=== PATIENT | male | born 1945 | race Caucasian/White ===

== ENCOUNTER 2022-01-20 15:37 | Emergency (ER) | payer MEDICARE ==
[~2022-01-20] VITALS: Ht 172.7 cm; Wt 87.1 kg
--- NOTE | 2022-01-20 15:37 | NUR ---
PT [id number] FRM HOME, C/O CHEST PAIN ONSET 1430. 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 PT IS AAOX4, NOT IN RESPIRATORY DISTRESS, HOOKED TO ANALYST, KEPT RESTED AND COMFORTABLE. WILL CONTINUE TO MONITOR.
--- NOTE | 2022-01-20 16:05 | NUR ---
PT SEEN AND EXAMINED BY .
--- NOTE | 2022-01-20 16:10 | NUR ---
IV LINE ESTABLISHED BLOOD DRAWN AND SENT TO LAB.
[2022-01-20 16:31] LABS: BASOPHILS % (AUTO) 0.5 % (0.0-2.0); HEMATOCRIT 38 % (39-51); HEMOGLOBIN 13.1 g/dL (13.5-17.5); LYMPHOCYTES # (AUTO) 1.2 K/uL (0.8-4.8); LYMPHOCYTES % (AUTO) 14.5 % (20.0-44.0); MEAN CORPUSCULAR HGB CONC 35 g/dl (31.0-36.0); MEAN CORPUSCULAR VOLUME 92 fL (80-96); MONOCYTES # (AUTO) 0.7 K/uL (0.1-1.30); MONOCYTES % (AUTO) 8.9 % (2.0-12.0); NEUTROPHILS # (AUTO) 6.1 K/uL (1.8-8.9); NEUTROPHILS % (AUTO) 75.1 % (43.0-81.0); PLATELET COUNT (AUTO) 239 K/uL (150-450); WHITE BLOOD COUNT (AUTO) 8.2 K/uL (4.3-11.0)
[2022-01-20 16:46] LABS: CALCIUM, SERUM 8.4 mg/dL (8.5-10.1); CARBON DIOXIDE 27 mmol/L (21-32); CHLORIDE 103 mmol/L (98-107); CREATININE 1.2 mg/dL (0.6-1.3); GLUCOSE 138 mg/dL (74-106); POTASSIUM 3.7 mmol/L (3.5-5.1); SODIUM SERUM 137 mmol/L (136-145); UREA NITROGEN, BLOOD 19 mg/dL (7-18)
[2022-01-20] MEDS ORDERED: ALPRAZOLAM 0.5 MG TABLET ONE (17:33)
[2022-01-20] MEDS ORDERED: ALPRAZOLAM 0.5 MG TABLET PO ONE (18:00)
--- NOTE | 2022-01-20 20:16 | NUR ---
Patient discharged to home in stable condition. Written and verbal after care instructions given. Patient verbalizes understanding of instruction. Patient ambulatory with a steady gait.
[2022-01-20 20:17] VITALS: BP 170/92
== END 2022-01-20 20:15 | disposition home or self-care (01) ==
LOC: ER 15:40
DX: R07.89 Other chest pain (principal); I10 Essential (primary) hypertension
CPT/HCPCS: 36415; 71045-TC; 80048-TC; 84484-TC; 85025-TC

== ENCOUNTER 2022-01-23 16:11 | Emergency (ER) | payer MEDICARE ==
[~2022-01-23] VITALS: Ht 172.7 cm; Wt 82.1 kg
--- NOTE | 2022-01-23 16:29 | NUR ---
CALLED PT IN WAITING ROOM, NO ANSWER
[2022-01-23 16:34] VITALS: BP 199/106
[2022-01-23] MEDS ORDERED: LORA-259 PO (17:12)
== END 2022-01-23 19:30 | disposition left against medical advice (07) ==
LOC: ER 16:15
DX: F41.1 Generalized anxiety disorder (principal); I10 Essential (primary) hypertension; Z60.2 Problems related to living alone; Z79.52 Long term (current) use of systemic steroids

== ENCOUNTER 2023-04-10 12:04 | Emergency (ER) | payer MEDICARE ==
[~2023-04-10] VITALS: Ht 172.7 cm; Wt 79.4 kg
[~2023-04-10 12:04] MED LIST: LORA-259 PO
[2023-04-10] MEDS ORDERED: IV NS 0.9% 1,000 ML BAG IV ONE (12:30)
--- NOTE | 2023-04-10 12:30 | NUR ---
BIB FAMILY C/P RLQ ABDOMINAL VINCENT N X1 MONTH THAT RADIATES TO HIS BACK, PAIN IS 8/10. NO DYSURIA, VOMITING NOR NAUSEA. PAIN WAS NOTED SEVERE 1 DAY PTC. PUT ON MONITOR. DR CRAIG AT BEDSIDE FOR EVAL. AWAITING FO ORDERS.
--- NOTE | 2023-04-10 12:36 | NUR ---
IV INSERTED RT FOREARM 20G, BLD DRAWN AND SENT TO LAB. STILL WAITING FOR URINE.
[2023-04-10] MEDS ORDERED: IOHEXOL-350 100 ML VIAL IV ONE (12:45)
[2023-04-10] MEDS ORDERED: CT SWABBABLE VALVE TRANS SET 1 EA INFUS.SET MC ONE (12:45)
[2023-04-10] MEDS ORDERED: IV NS 0.9% 250 ML IV ONE (12:45)
--- NOTE | 2023-04-10 12:45 | NUR ---
PER DR CRAIG NO NEED TO WAIT FOR CREATININE LEVEL TO DO CTA. PRIMARY NURSE MADE AWARE.
--- NOTE | 2023-04-10 12:48 | NUR ---
IVF RUNNING AT RT FOREARM 20G
[2023-04-10 12:59] LABS: BASOPHILS % (AUTO) 0.2 % (0.0-2.0); EOSINOPHILS % (AUTO) 1.5 % (0.0-6.0); HEMATOCRIT 44 % (39-51); HEMOGLOBIN 14.6 g/dL (13.5-17.5); LYMPHOCYTES # (AUTO) 1.2 K/uL (0.8-4.8); LYMPHOCYTES % (AUTO) 16.8 % (20.0-44.0); MEAN CORPUSCULAR HGB CONC 34 g/dl (31.0-36.0); MEAN CORPUSCULAR VOLUME 95 fL (80-96); MONOCYTES # (AUTO) 0.8 K/uL (0.1-1.30); MONOCYTES % (AUTO) 11.5 % (2.0-12.0); NEUTROPHILS # (AUTO) 4.9 K/uL (1.8-8.9); PLATELET COUNT (AUTO) 240 K/uL (150-450); WHITE BLOOD COUNT (AUTO) 7.1 K/uL (4.3-11.0)
--- NOTE | 2023-04-10 13:03 | NUR ---
PT WITH EXPERIMENTAL PHYSICIST FOR SCAN VIA [facility]
--- NOTE | 2023-04-10 13:19 | NUR ---
BACK FROM CT VIA [facility]. VS WNL
--- NOTE | 2023-04-10 13:34 | NUR ---
DR CRAIG NOTIFIED OF BP 227/99
[2023-04-10 13:48] LABS: CALCIUM, SERUM 9.7 mg/dL (8.5-10.1); CREATININE 0.9 mg/dL (0.6-1.3); POTASSIUM 4.5 mmol/L (3.5-5.1)
[2023-04-10 13:50] LABS: ALBUMIN 4.4 g/dL (3.4-5.0); BILIRUBIN,DIRECT 0.2 mg/dL (0.0-0.2); BILIRUBIN,TOTAL 0.9 mg/dL (0.2-1.0); TOTAL PROTEIN, SERUM 8.3 g/dL (6.4-8.2)
[2023-04-10 14:06] LABS: BILIRUBIN,URINE NEGATIVE (NEGATIVE); COLOR,URINE YELLOW (YELLOW); LEUKOCYTE ESTERASE ,URINE NEGATIVE (NEGATIVE); NITRITE, URINE NEGATIVE (NEGATIVE); PROTEIN,URINE NEGATIVE (NEGATIVE); UGLUCOSE NEGATIVE (NEGATIVE); UROBILINOGEN,URINE 0.2 EU/dL (0.2)
--- NOTE | 2023-04-10 14:38 | NUR ---
IVF REMOVED WELL TOLERATED
[2023-04-10 15:28] VITALS: BP 170/95
--- NOTE | 2023-04-10 15:29 | NUR ---
Patient discharged to home in stable condition. Written and verbal after care instructions given. Patient verbalizes understanding of instruction.
--- NOTE | 2023-04-10 15:29 | NUR ---
IV removed. Catheter intact and site benign. Pressure and 4x4 applied to site. No bleeding noted.
== END 2023-04-10 15:30 | disposition home or self-care (01) ==
LOC: ER 12:08
DX: R10.31 Right lower quadrant pain (principal); I10 Essential (primary) hypertension; F41.9 Anxiety disorder, unspecified; Z60.2 Problems related to living alone; Z79.899 Other long term (current) drug therapy
CPT/HCPCS: 99285; 74174; 96360; 71275; 76705; 71045; 96361; 93005; 85025; 80048; 83690; 80076; 81003; 36415; J7030; J7050; Q9967